=== PATIENT | male | born 1935 | race Caucasian/White ===

== ENCOUNTER 2023-03-05 08:40 | Day surgery (SDC) | payer MEDICARE, OTHER ==
[2023-03-05] VITALS (11 sets, daily range): BP systolic 119–139; BP diastolic 60–123; PULSE 60–80
[~2023-03-05] VITALS: Ht 167.6 cm; Wt 88.6 kg
[~2023-03-05 08:40] MED LIST: ALLO100T PO; AMLO5TAB66 PO; ASPI-1444 PO; ATOR40TA71 PO; BENA-8 PO; CHOL200059 PO; FERR325T23 PO; PATI8.4P PO; SODIUM CHLORIDE 0.9% 1,000 ML ONE
[2023-03-05] MEDS ORDERED: SODIUM CHLORIDE 0.9% 1,000 ML IV ONE (09:00)
[2023-03-05] MEDS ORDERED: DiphenhydrAMINE HCL 50 MG CAPSULE PO ONE (09:00)
[2023-03-05] MEDS ORDERED: DIAZEPAM 5 MG TABLET PO ONE (09:00)
[2023-03-05] MEDS ORDERED: ASPIRIN 81 MG CHEWABLE TABLET PO ONE (09:00)
[2023-03-05] MEDS ORDERED: AMLO10TA55 PO (10:05)
[2023-03-05] MEDS ORDERED: DiphenhydrAMINE HCL 50 MG CAPSULE ONE (10:54)
[2023-03-05] MEDS ORDERED: DIAZEPAM 5 MG TABLET ONE (10:54)
[2023-03-05] MEDS ORDERED: ASPIRIN 81 MG CHEWABLE TABLET ONE (10:54)
[2023-03-05] MEDS ORDERED: HEPARIN SODIUM 1000 UNITS/NS 1,000 ML ONE (13:40)
[2023-03-05] MEDS ORDERED: LIDOCAINE/PF 1% 30 ML VIAL ONE (13:40)
[2023-03-05] MEDS ORDERED: IOHEXOL 300 MG/ML 100 ML VIAL ONE (13:40)
[2023-03-05] MEDS ORDERED: SODIUM BICARBONATE 50 MEQ/50 ML VIAL ONE (13:40)
[2023-03-05] MEDS ORDERED: MIDAZOLAM HCL 2 MG/2 ML VIAL ONE (14:02)
[2023-03-05] MEDS ORDERED: FentaNYL CITRATE PF 100 MCG/2 ML VIAL ONE (14:02)
[2023-03-05] MEDS ORDERED: LIDOCAINE 1% 30 ML/SOD BICARB 8.4% 4 ML SQ ONE (14:15)
[2023-03-05] MEDS ORDERED: IOHEXOL 300 MG/ML 100 ML VIAL IARTER ONE (14:15)
[2023-03-05] MEDS ORDERED: FentaNYL CITRATE PF 100 MCG/2 ML VIAL IVP ONE (14:15)
[2023-03-05] MEDS ORDERED: HEPARIN SODIUM 1000 UNITS/NS 1,000 ML IARTER ONE (14:15)
[2023-03-05] MEDS ORDERED: MIDAZOLAM HCL 2 MG/2 ML VIAL IVP ONE (14:15)
[2023-03-05] MEDS ORDERED: TICAGRELOR 90 MG TABLET ONE (14:19)
[2023-03-05] MEDS ORDERED: ASPIRIN 325 MG TABLET ONE (14:19)
[2023-03-05] MEDS ORDERED: HEPARIN SODIUM,PORCINE 1,000 UNITS/ML 10 ML VIAL IVP ONE (14:45)
== END 2023-03-05 19:00 | disposition home or self-care (01) ==
LOC: CATHLAB 08:40
PROVIDERS: ATTEND Internal Medicine Interventional Cardiology
DX: R94.39 Abnormal result of other cardiovascular function study (principal); I25.10 Atherosclerotic heart disease of native coronary artery without angina pectoris; I11.0 Hypertensive heart disease with heart failure; D64.9 Anemia, unspecified; E78.5 Hyperlipidemia, unspecified; E11.9 Type 2 diabetes mellitus without complications; I50.20 Unspecified systolic (congestive) heart failure; Z79.899 Other long term (current) drug therapy; Z98.890 Other specified postprocedural states
CPT/HCPCS: 92920; 93458; 93005; 99152; 99153; C1887; C1760; J3010; J1644; J3490 ×2; J2250; J7030; Q9967